=== PATIENT | male | born 1985 | race Caucasian/White ===

== ENCOUNTER 2016-07-10 20:17 | Emergency (ER) | payer OTHER ==
[~2016-07-10] VITALS: Ht 165.1 cm; Wt 95.2 kg
[~2016-07-10 20:17] MED LIST: FLAGYL500 MG PO; NOHOMEMEDS
[2016-07-10 20:42] LABS: HEMATOCRIT 42.1 % (38.0-50.0); MCH 31.3 PG (29.0-34.0); MCHC 36.8 G/DL (30.0-36.0); MCV 85.1 FL (86-99); MEAN PLAT.VOLUME 8.6 uM^3 (9.0-12.4); PLATELET COUNT 297 K/uL (156-360); RBC DIS.WIDTH-CV 12.4 % (11.8-14.6); RBC DIS.WIDTH-SD 37.5 % (39-53); RED BLOOD COUNT 4.95 M/uL (4.00-5.50); WHITE BLOOD COUNT 9.4 K/uL (4.1-10.2)
[2016-07-10 20:52] LABS: CHLORIDE 109 mEq/L (99-109); POTASSIUM 3.6 mEq/L (3.7-5.4); SODIUM 140 mEq/L (136-147)
[2016-07-10 20:54] LABS: GLUCOSE 135 mg/dL (70-99)
[2016-07-10 20:55] LABS: ANION GAP 10 MEQ/L (2-14)
[2016-07-10 20:57] LABS: GFR ESTIMATE (CALCULATED) > 59 mL/min/
[2016-07-10 20:58] LABS: UREA NITROGEN (BUN) 8 mg/dL (9-23)
[2016-07-10 21:02] LABS: D-DIMER ELISA 0.22 mg/L FEU (< 0.57)
[2016-07-10 21:04] LABS: TROP-I INTERPRETATION NEGATIVE; TROPONIN-I < 0.01 ng/mL (0.0-0.30)
[2016-07-10] MEDS ORDERED: ATIVAN1 MG PO (21:48)
[2016-07-10 21:58] VITALS: BP 130/74
== END 2016-07-10 22:08 | disposition home or self-care (01) ==
LOC: EME 20:17
DX: R07.9 Chest pain, unspecified (principal); F41.9 Anxiety disorder, unspecified; Z73.3 Stress, not elsewhere classified; F17.200 Nicotine dependence, unspecified, uncomplicated
CPT/HCPCS: 71020; 80048; 84484; 85027; 85379; 93005; 99281; 99284

== ENCOUNTER 2017-03-27 22:04 | Emergency (ER) | payer OTHER ==
[~2017-03-27] VITALS: Ht 165.1 cm; Wt 93.3 kg
[~2017-03-27 22:04] MED LIST changes: +ATIVAN1 MG PO
[2017-03-27] MEDS ORDERED: ACULAR 0.5100 DROP/5 BOTH EYES (23:03)
[2017-03-27 23:24] VITALS: BP 157/90
== END 2017-03-27 23:24 | disposition home or self-care (01) ==
LOC: RME 22:04 → EME 22:04 → RME 23:24
DX: H10.33 Unspecified acute conjunctivitis, bilateral (principal)
CPT/HCPCS: 99281; 99283

== ENCOUNTER 2018-01-10 01:37 | Emergency (ER) | payer OTHER ==
[~2018-01-10] VITALS: Ht 165.1 cm; Wt 102.0 kg
[~2018-01-10 01:37] MED LIST changes: +ACULAR 0.5100 DROP/5 BOTH EYES
[2018-01-10 02:25] LABS: HEMATOCRIT 43.9 % (38.0-50.0); HEMOGLOBIN 15.6 G/DL (12.5-16.6); MCHC 35.5 G/DL (30.0-36.0); MCV 87.1 FL (86-99); PLATELET COUNT 301 K/uL (156-360); RBC DIS.WIDTH-CV 12.6 % (11.8-14.6); RED BLOOD COUNT 5.04 M/uL (4.00-5.50); WHITE BLOOD COUNT 9.8 K/uL (4.1-10.2)
[2018-01-10 02:31] LABS: ALBUMIN 4.5 g/dL (3.2-4.8)
[2018-01-10 02:32] LABS: CHLORIDE 106 mEq/L (99-109); POTASSIUM 3.7 mEq/L (3.7-5.4); SODIUM 142 mEq/L (136-147)
[2018-01-10 02:34] LABS: GLUCOSE 152 mg/dL (70-99); TOTAL PROTEIN 7.6 g/dL (6.4-8.3)
[2018-01-10 02:36] LABS: TOTAL BILIRUBIN 0.3 mg/dL (0.0-1.0)
[2018-01-10 02:37] LABS: ALKALINE PHOSPHATASE 66 IU/L (3-129)
[2018-01-10 02:38] LABS: GFR ESTIMATE (CALCULATED) > 59 mL/min/ (58.99-99999)
[2018-01-10 02:39] LABS: AST (GOT) 81 IU/L (2-34); UREA NITROGEN (BUN) 12 mg/dL (9-23)
[2018-01-10 02:41] LABS: ALT (GPT) 95 IU/L (3-49)
[2018-01-10] MEDS ORDERED: ZOFRAN4 MG PO (03:23)
[2018-01-10] MEDS ORDERED: FLOMAX0.4 MG PO (03:23)
[2018-01-10] MEDS ORDERED: PERCOCET 5/31 TABLET PO (03:23)
[2018-01-10 03:32] LABS: APPEARANCE SL.HAZY ((CLEAR)); BILIRUBIN NEGATIVE; BLOOD LARGE; COLOR AMBER ((YELLOW)); GLUCOSE (STRIP) NEGATIVE; KETONES 5; LEUKOCYTES NEGATIVE; NITRITE NEGATIVE; PROTEIN (STRIP) 100
[2018-01-10 03:54] LABS: WHITE BLOOD CELLS 0-5 /HPF (0-5)
[2018-01-10 03:56] LABS: RED BLOOD CELLS 15-20 /HPF (0-5)
[2018-01-10 03:57] LABS: BACTERIA 2+ /HPF; CALCIUM OXALATE CRYSTALS FEW /HPF; EPITHELIAL CELLS RARE /HPF; MUCUS 3+ /LPF; UCUL ADDED? YES
[2018-01-10 04:14] VITALS: BP 166/92
== END 2018-01-10 04:15 | disposition home or self-care (01) ==
LOC: EME 01:37
DX: N13.2 Hydronephrosis with renal and ureteral calculous obstruction (principal); K76.0 Fatty (change of) liver, not elsewhere classified; F17.200 Nicotine dependence, unspecified, uncomplicated
CPT/HCPCS: 74176; 80053; 81003; 85027; 87086; 99281; 99284; J1885; J2405; J3010; J7030